=== PATIENT | male | born 1965 | race Caucasian/White ===

== ENCOUNTER 2019-02-08 07:51 | Inpatient (IN) ==
--- NOTE | 2019-02-08 09:15 | EKG Report ---
Test Performed on : 02/08/2019 08:11:44 AM Test Reason : AMS Blood Pressure : / mmHG Vent. Rate : 072 BPM Atrial Rate : 072 BPM P-R Int : 162 ms QRS Dur : 092 ms QT Int : 422 ms P-R-T Axes : 000 143 179 degrees QTc Int : 462 ms Normal sinus rhythm. Right axis deviation ST & T wave abnormality, consider inferior ischemia ST & T wave abnormality, consider anterolateral ischemia Abnormal ECG No previous ECGs available Unconfirmed Result
[2019-02-08 09:18] LABS: BASO# 0.02 X1000 (0.0-0.2); BASO% 0.2 % (0.0-0.8); EOS# 0.44 X1000 (0.0-0.7); EOS% 3.5 % (0.0-10.0); HEMATOCRIT 34.7 % (42.0-52.0); HEMOGLOBIN 12.1 g/dL (14.0-18.0); IMM GRAN# 0.04 X1000 (0.0-0.04); IMM GRAN% 0.3 % (0.0-0.5); LYMPH# 1.31 X1000 (1.2-3.4); LYMPH% 10.6 % (20.5-51.1); MCHC 34.9 g/dL (33-37); MCV 91.8 FL (81-99); MONO# 1.06 X1000 (0.11-0.59); MONO% 8.5 % (1.7-9.3); MPV 13.4 FL (7.4-10.4); NEUT# 9.53 X1000 (1.4-6.5); NEUT% 76.9 % (42.2-75.2); PLT 182 X1000 (130-400); RBC 3.78 XMIL (4.7-6.1); RDW 12.5 % (11.5-14.5)
--- NOTE | 2019-02-08 09:20 | Diag Imaging Result Doc PS360 ---
EXAM: CHEST-PORTABLE HISTORY: AMS TECHNIQUE: Single view COMPARISON: None. FINDINGS: The lungs are well expanded. The heart is not enlarged. The vessels are not distended. There are no infiltrates. No effusion identified. IMPRESSION: Negative exam. Electronically signed by Edy Delvalle 02/08/2019 9:17 AM
[2019-02-08 09:39] LABS: ALB/GLOB RATIO 1.5; CALCIUM 8.6 mg/dL (8.8-10.2); POTASSIUM 3.5 mmol/L (3.5-5.1); TOTAL BILIRUBIN 0.4 mg/dL (0.20-1.00); TOTAL PROTEIN 6.7 g/dL (6.3-8.3)
--- NOTE | 2019-02-08 09:39 | Diag Imaging Result Doc PS360 ---
EXAM: CT HEAD W/O CONTRAST 02/08/2019 HISTORY: AMS TECHNIQUE: This exam was performed using automated exposure control, adjustment of mA or kV according to patient size, and/or use of iterative reconstruction technique. COMMENT: There is no evidence of mass effect, bleed, or abnormal extra-axial fluid collection. There are patchy lucencies in the subcortical and periventricular white matter bilaterally. There is no evidence of acute bony disease. The visualized paranasal sinuses are clear. IMPRESSION: Chronic microvascular white matter changes. No definite evidence of acute disease. Electronically signed by Thaddeus Turner 02/08/2019 9:37 AM
[2019-02-08 09:44] LABS: INR 1.02; PROTIME 13.6 Seconds (11.0-16.0)
[2019-02-08 09:45] LABS: PTT 27.8 Seconds (22.3-41.8)
[2019-02-08] MEDS ORDERED: NS 1,000 ML IV ONE (09:59)
[2019-02-08 10:08] LABS: CK INDEX 4.1 (0.0-2.5); CK-MB 8.71 ng/mL (0.0-5.0)
[2019-02-08 10:13] LABS: URINE SOURCE CATH
[2019-02-08 10:22] LABS: BILIRUBIN URINE NEGATIVE (NEGATIVE); BLOOD URINE NEGATIVE (NEGATIVE); COLOR STRAW; GLUCOSE URINE NEGATIVE (NEGATIVE); KETONE URINE NEGATIVE (NEGATIVE); LEUKOCYTES URINE NEGATIVE (NEGATIVE); NITRITE URINE NEGATIVE (NEGATIVE); PROTEIN URINE NEGATIVE (NEGATIVE); SP GRAVITY URINE 1.009; TURBIDITY URINE CLEAR (CLEAR); UROBILINOGEN URINE NORMAL (NORMAL)
[2019-02-08 10:23] LABS: UR EPITHELIAL CELLS <10 /HPF (<10); URINE BACTERIA NEGATIVE /HPF; URINE RBC <10 /HPF (<10); URINE WBC <10 /HPF (<10)
[2019-02-08 11:22] LABS: UR AMPHETAMINES QUAL NONE DETECTED (NONE DETECT); UR BARBITUATES QUAL NONE DETECTED (NONE DETECT); UR BENZODIAZEPIN QUAL NONE DETECTED (NONE DETECT); UR CANNABINOIDS QUAL NONE DETECTED (NONE DETECT); UR COCAINE QUAL NONE DETECTED (NONE DETECT); UR METHADONE QUAL NONE DETECTED (NONE DETECT); UR OPIATES QUAL NONE DETECTED (NONE DETECT); UR OXYCODONE QUAL NONE DETECTED (NONE DETECT); UR PCP QUAL NONE DETECTED (NONE DETECT)
[2019-02-08 11:23] LABS: UR CREAT RANDOM 60.1 mg/dL (14-26)
[2019-02-08 11:30] LABS: UR PROT RANDOM 4.8 mg/dL
[2019-02-08] MEDS ORDERED: ZOFRAN IV PRN (11:59)
[2019-02-08] MEDS ORDERED: TYLENOL PO PRN (11:59)
[2019-02-08] MEDS: NS 1,000 ML IV SCH ×2 (12:35→23:21)
--- NOTE | 2019-02-08 12:48 | Diag Imaging Result Doc PS360 ---
EXAM: US RENAL 2 (RETROPER) COMPLETE HISTORY: acute kidney injury TECHNIQUE: Renal ultrasound COMPARISON: None. FINDINGS: The right kidney measures 10.8 x 6.4 x 5.7 cm. The left kidney measures 10.2 x 6.6 x 6.0 cm. Normal cortical thickness to each kidney. Mild increased renal echotexture. No stones or hydronephrosis. No renal mass. The urinary bladder is distended and appears normal. The prostate measures 4.6 cm in maximum diameter. IMPRESSION: Increased renal echotexture which can be seen with medical renal disease. Electronically signed by Edy Delvalle 02/08/2019 12:45 PM
--- NOTE | 2019-02-08 14:43 | PROVIDER DOCUMENTATION ---
This chart was entered by Darya Hanley Scribe, acting as scribe for Alexandrea Beyer MD. HPI-Neurological Disorder - General Chief Complaint: Altered Mental Status Stated Complaint: AMS X3 WEEKS Time Seen by Provider: 02/08/19 08:22 Source: family, EMS Allergies/Adverse Reactions: Patient Allergies Allergy/AdvReac Type Severity Reaction Status Date / Time chlorpromazine Allergy ANAPHYLAXIS Verified 03/15/18 13:44 [From Thorazine] Home Medications: Home Medication List Medication Instructions Recorded Confirmed Last Taken Type [place] Carbonate C.r. [Eskalith 450 mg PO BID 03/15/18 02/08/19 03/15/18 History Cr] Losartan/Hydrochlorothiazide 1 ea PO DAILY 02/08/19 02/08/19 Unknown History [Hyzaar 100-25 Tablet] - History of Present Illness-Neuro Nature of Presenting Problem: Patient is a 53 year old male who presents to the ED via EMS with altered mental status. Family states patient is confused. Family reports altered mental status has been present for 2 weeks. EMS states patient reported he has not been taking his [place]. Severity: reports: mild Onset/Duration: reports: other (2 weeks) Timing: reports: still present Context: reports: other (AMS) Character of Altered Mental Status: reports: confused Any recent trauma/injury?: reports: none Associated Symptoms: reports: denies symptoms Similar Symptoms Previously?: Yes Recently seen or treated by another doctor?: Yes Review of Systems - Adult - REVIEW OF SYSTEMS - ADULT ROS:: ROS per family Constitutional: reports: no symptoms reported Eyes: reports: no symptoms reported Ears, Nose, Mouth & Throat: reports: no symptoms reported Cardiovascular: reports: no symptoms reported Respiratory: reports: no symptoms reported Gastrointestinal: reports: no symptoms reported Genitourinary: reports: no symptoms reported Musculoskeletal: reports: no symptoms reported Integumentary: reports: no symptoms reported Neurological: reports: see HPI, other (AMS - confused). denies: dizziness/vertigo, headache/migraines Psychiatric: reports: no symptoms reported Endocrine: reports: no symptoms reported Hematologic/Lymphatic: reports: no symptoms reported Allergic/Immunologic: reports: no symptoms reported All Other Systems: Reviewed and Negative Past History - Adult - PAST MEDICAL HISTORY-ADULT Review of Records: reports: Old Records Reviewed, Nursing Assessment Review, Medications Reviewed, Social history reviewed & non-contributory. Major Childhood Illnesses: reports: denies history Cardiovascular: reports: HTN Respiratory: reports: denies history Gastrointestinal: reports: denies history Obstetrical/Gynecological: reports: denies history Genitourinary: reports: denies history Musculoskeletal: reports: denies history Neurological: reports: denies history Psychiatric: reports: depression Endocrine/Immune: reports: denies history Other Conditions: reports: denies history - PRIOR SURGERIES/PROCEDURES Surgical/Procedure History: reports: orthopedic (extremity) - IMMUNIZATION STATUS Childhood Immunizations: See Nurse Assessment Flu Vaccine: See Nurse Assessment - FAMILY HISTORY Family History: reviewed, not pertinent - SOCIAL HISTORY Smoking: denies Substance Use: alcohol Physical Exam- Neurological - Physical Exam-Neuro Initial Vital Signs Reviewed: Yes General Appearance: no apparent distress, slow to respond, other (flat affect). negative: obtunded Eye Exam: bilateral eye: normal inspection HENMT: normocephalic/atraumatic, moist mucous membranes. negative: angioedema Head Injury: no evidence of injury. negative: active bleeding, lacerations Respiratory: chest non-tender, lungs clear, normal breath sounds. negative: rales, rhonchi, stridor Cardiovascular: normal peripheral pulses, regular rate, rhythm. negative: tachycardia Abdominal Exam: normal bowel sounds, non tender, soft. negative: distended, rigid Extremity: normal inspection. negative: deformity, erythema restaurant greeter Exam: normal hearing, normal speech. negative: abnormal speech, facial droop Motor/Sensory: no motor deficit, no pronator drift. negative: sensory deficit Neurologic: other (shaking/tremors at times) Integumentary: normal color, normal turgor, warm/dry. negative: diaphoresis, ecchymosis, rash Psych/Mental Status: other (flat affect and slow to respond). negative: anxious, tearful - [place] Coma Scale Best Eye Response: (4) open spontaneously Best Verbal Response: (4) confused conversation Best Motor Response: (6) obeys commands Progress - PLAN OF CARE/RESULTS Result Diagrams: 02/08/19 08:18 02/08/19 08:18 - EKG 1 Time of EKG reading by physician:: 08:11 EKG Read and Signed by:: Alexandrea Beyer EKG Interpretation (*Must complete 3 of following elements*): Abnormal (ST & T wave abnormality, consider anterolateral ischemia) Rate: 72 Rhythm: normal sinus rhythm [place]: right HI Interval: normal Comments: ST & T wave abnormality, consider inferior ischemia; - XRAY 1 XRAY Study: Chest Impression: See EMR Report ( EXAM: CHEST-PORTABLE HISTORY: AMS TECHNIQUE: Single view COMPARISON: None. FINDINGS: The lungs are well expanded. The heart is not enlarged. The vessels are not distended. There are no infiltrates. No effusion identified. IMPRESSION: Negative exam. Electronically signed by Edy Delvalle 02/08/2019 9:17 AM 02/08/19916 Interpreting Physician: Edy Delvalle MD Dictated Date/Time: 02/08/19916 cc: Alexandrea Beyer MD; Adeel Ricardo MD) - CT/MRI 1 CT Study: Head Impression: See EMR Report (EXAM: CT HEAD W/O CONTRAST 02/08/2019 HISTORY: AMS TECHNIQUE: This exam was performed using automated exposure control, adjustment of mA or kV according to patient size, and/or use of iterative reconstruction technique. COMMENT: There is no evidence of mass effect, bleed, or abnormal extra-axial fluid collection. There are patchy lucencies in the subcortical and periventricular white matter bilaterally. There is no evidence of acute bony disease. The visualized paranasal sinuses are clear. IMPRESSION: Chronic microvascular white matter changes. No definite evidence of acute disease. Electronically signed by Thaddeus Turner 02/08/2019 9:37 AM 02/08/19936 Interpreting Physician: Thaddeus Turner MD Dictated Date/Time: 02/08/19935 cc: Alexandrea Beyer MD; Adeel Ricardo MD) - CONSULTS/PCP/HOSPITALIST Notification #1 *Consult/PCP/Hospitalist*: Dr. Ashton Time Discussed: 10:11 Reason/Comments: Dr. Beyer consulted with Dr. Ashton about patient Consult Disposition: Will see in ED, Admit Departure - Departure Date of Disposition Decision: 02/08/19 Time of Disposition Decision: 10:12 DIAGNOSIS: [place] toxicity Disposition: ADMITTED INPATIENT 09 Certified Medical Emergency: Emergent Condition: Stable - Critical Care Note This patient required my direct & personal management of CC.: No Attestation - Physician/ PAULETTE Attestation Patient care was provided by Advanced Practice Provider:: No The physician spent face to face time with patient:: Yes Advanced Practice Provider documentation review:: Supervising physician onsite and consulted in the evaluation and care of this patient. The physician did have a face to face encounter with the patient. This chart was documented by the indicated scribe, (Darya Hanley Scribe) and accurately reflects the services I performed and decisions made by me, Alexandrea Beyer MD, as attested by the provider's signature.
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
[2019-02-09 05:31] LABS: HEMATOCRIT 30.3 % (42.0-52.0); HEMOGLOBIN 10.2 g/dL (14.0-18.0); MCH 31.8 PG (27-31); MCHC 33.7 g/dL (33-37); MCV 94.4 FL (81-99); MPV 12.9 FL (7.4-10.4); RBC 3.21 XMIL (4.7-6.1); RDW 12.8 % (11.5-14.5); WBC 9.36 X1000 (4.8-10.8)
[2019-02-09 05:32] LABS: ALBUMIN 3.4 g/dL (3.5-5.0); CALCIUM 8.9 mg/dL (8.8-10.2); CREATININE 1.6 mg/dL (0.7-1.2); PHOSPHORUS 2.2 mg/dL (2.7-4.5); POTASSIUM 3.4 mmol/L (3.5-5.1)
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
[2019-02-09] MEDS: NS 1,000 ML IV SCH ×3 (08:15→23:18)
[2019-02-09] MEDS: LOVENOX SUBQ SCH (10:21)
[2019-02-09] MEDS ORDERED: KLOR-CON PO ONE (10:39)
--- NOTE | 2019-02-09 14:38 | PROGRESS NOTE ---
DATE: 02/09/2019 SUBJECTIVE: The patient is awake and feeling better today. His speech is better, and the tremors have improved. OBJECTIVE: Vital Signs: Temperature 97.4 degrees, blood pressure 129/62, heart rate 69, respirations 16, and O2 saturation 100% on room air. General: This is an elderly male lying in bed in no acute distress. Heart: S1, S2 normal. Regular rate and rhythm. Lungs: Clear to auscultation bilaterally. Abdomen: Positive bowel sounds. Soft, nontender, and nondistended. Extremities: No edema. No cyanosis. No calf tenderness. Neurologic: The patient is alert and oriented x4. LABORATORY: Sodium 141, potassium 3.4, chloride 111, CO2 21, BUN 23, creatinine 1.6, and glucose 165. [place] level 2.1. ASSESSMENT AND PLAN: 1. Toxic metabolic encephalopathy. Slowly improving. The patient's mental status is better today. We will continue to monitor closely. 2. [place] toxicity. Slowly improving. 3. Acute kidney injury. Slightly improved today. Continue with IV fluids. Nephrology is following. 4. Bipolar disorder. Aware. The lithium is currently on hold. 5. Hypokalemia. Will replace the potassium. 6. Deep vein thrombosis prophylaxis. Continue on Lovenox. 7. We will consult physical therapy. cc: Debora Kaba MD MTDD
[2019-02-10 05:48] LABS: AGAP 11; ALBUMIN 3.7 g/dL (3.5-5.0); BUN 14 mg/dL (8-22); CALCIUM 9.3 mg/dL (8.8-10.2); CHLORIDE 111 mmol/L (98-107); COSMO 286; CREATININE 1.2 mg/dL (0.7-1.2); ESTIMATED GFR > 60; GLUCOSE 174 mg/dL (70-104); PHOSPHORUS 2.2 mg/dL (2.7-4.5); POTASSIUM 3.6 mmol/L (3.5-5.1); SODIUM 141 mmol/L (136-145); TCO2 19 mmol/L (25-35)
[2019-02-10 06:02] LABS: HEMATOCRIT 30.6 % (42.0-52.0); HEMOGLOBIN 10.4 g/dL (14.0-18.0); MCH 31.8 PG (27-31); MCV 93.6 FL (81-99); MPV 13.4 FL (7.4-10.4); RBC 3.27 XMIL (4.7-6.1); RDW 12.2 % (11.5-14.5); WBC 11.61 X1000 (4.8-10.8)
[2019-02-10] MEDS: NS 1,000 ML IV SCH ×2 (07:31→15:37)
[2019-02-10] MEDS: LOVENOX SUBQ SCH (09:06)
--- NOTE | 2019-02-10 13:54 | NEPHROLOGY PROGRESS NOTE ---
DATE: 02/10/2019 SUBJECTIVE: He is spontaneously awake, the staff states that he got out of bed overnight and had a fall. No injury. Urinated on the floor. Today he is disoriented as to place, stating that he is at home but otherwise he is able to relate his history. He is able to tell me where he works and what sort of work he does. He is able to relate the problems he was having and when the last time was he went to work. His speech is still weak and tremulous but understandable. OBJECTIVE: Vital Signs: Blood pressure 139/73, heart rate 80, respirations 14, afebrile. General: No acute distress. Skin: Warm and dry. Neck: Neck veins are not distended. Heart: Regular with S4. Lungs: Equal. No crackles. Abdomen: Soft, nontender. Normal bowel sounds. Extremities: No edema clubbing or cyanosis. IMPRESSION: 1. Intravascular volume depletion with acute kidney injury. Resolved. 2. [place] intoxication. [place] level 1.6 this morning. Progressive improvement clinically as well as in his lithium levels. 3. I have nothing further to add so I will sign off but if I can be of further assistance, please do not hesitate to call. cc: Medardo Stevenson MD
[2019-02-10] MEDS ORDERED: SODIUM PHOSPHATE 20 MMOL in NS 250 ML IV ONE (17:23)
--- NOTE | 2019-02-10 17:45 | PROGRESS NOTE ---
DATE: 02/10/2019 SUBJECTIVE: The patient is resting comfortably in bed. He is more awake and alert today. His parents are present at the bedside. OBJECTIVE: Vital Signs: Temperature 97.9 degrees, blood pressure 130/69, heart rate 67, respirations 16, O2 saturation is 100% on room air. General: This is an elderly male sitting in a chair in no acute distress. Heart: S1, S2 normal. Regular rate and rhythm. Lungs: Clear to auscultation bilaterally. Abdomen: Positive bowel sounds. Soft, nontender, nondistended. Extremities: No edema. No cyanosis. Neurologic: The patient is alert and oriented x3. LABORATORY DATA: White blood cell count 11, platelets 173,000. Sodium 141, potassium 3.6, chloride 111, CO2 is 19, BUN 14, creatinine 1.2, glucose 174, phosphorus 2.2. ASSESSMENT AND PLAN: 1. Toxic metabolic encephalopathy. Resolving. The patient's renal function is back to normal and his mental status is improved. Continue to monitor. 2. [place] toxicity. Resolving. He will need to follow up with his pst specialist to find a different medication. 3. Acute kidney injury. Resolved. 4. Bipolar disorder. Aware. 5. Hypophosphatemia. Replace phosphorus. 6. Deep vein thrombosis prophylaxis. Continue on Lovenox. 7. Continue with physical therapy. cc: Debora Kaba MD [facility]
[2019-02-11] MEDS: NS 1,000 ML IV SCH (05:32)
[2019-02-11 06:19] LABS: AGAP 11; ALBUMIN 3.7 g/dL (3.5-5.0); BUN 13 mg/dL (8-22); CALCIUM 8.8 mg/dL (8.8-10.2); CHLORIDE 112 mmol/L (98-107); COSMO 288; CREATININE 1.1 mg/dL (0.7-1.2); ESTIMATED GFR > 60; GLUCOSE 118 mg/dL (70-104); PHOSPHORUS 2.8 mg/dL (2.7-4.5); POTASSIUM 3.7 mmol/L (3.5-5.1); SODIUM 144 mmol/L (136-145); TCO2 21 mmol/L (25-35)
[2019-02-11] MEDS: LOVENOX SUBQ SCH (08:44)
--- NOTE | 2019-02-11 17:27 | PROGRESS NOTE ---
DATE: 02/11/2019 SUBJECTIVE: The patient is still a little confused. He has difficulty at times feeding himself and is unsteady on his feet. OBJECTIVE: Vital Signs: Temperature 97 degrees, blood pressure 133/76, heart rate 71, respirations 16, and O2 saturation is 100% on room air. Intake 720, output 1.9 L. General: This is a chronically ill-appearing elderly male lying in bed in no acute distress. Heart: S1, S2 normal. Regular rate and rhythm. Lungs: Clear to auscultation bilaterally. Abdomen: Positive bowel sounds. Soft, nontender, nondistended. Extremities: No edema. No cyanosis. Neurologic: The patient is alert and oriented x3. LABORATORIES: Sodium 144, potassium 3.7, BUN 13, creatinine 1.1, chloride 112, CO2 of 21, glucose 118. ASSESSMENT AND PLAN: 1. [place] toxicity. The patient's laboratory studies are normal. However, the patient's mental status and ability to walk are still impaired. The patient would likely benefit from a brief stay at an inpatient rehab facility. 2. Acute kidney injury. Resolved. 3. Bipolar disorder. Aware. 4. Deep vein thrombosis prophylaxis. Continue on Lovenox. DISPOSITION: We will consult with [facility] for inpatient rehab placement. Continue with PT. cc: Debora Kaba MD MTDD
[2019-02-12] MEDS: LOVENOX SUBQ SCH (08:38)
--- NOTE | 2019-02-12 18:05 | PROGRESS NOTE ---
DATE: 02/12/2019 SUBJECTIVE: The patient is sitting up in bed eating lunch. He admits that he purposefully took extra lithium doses for 2 days straight, both in the morning and in the evening. OBJECTIVE: Vital Signs: Temperature 98 degrees, blood pressure 130/79, heart rate 67 respirations 16, O2 saturation 100% on room air. General: This is a chronically ill-appearing elderly male sitting in bed in no acute distress. Heart: S1, S2 normal. Regular rate and rhythm. Lungs: Equal air entry bilaterally. No wheezing. No rales. Abdomen: Positive bowel sounds. Soft, nontender, nondistended. Extremities: No edema. No cyanosis. Neurologic: The patient is alert and oriented x3. LABORATORY DATA: None. ASSESSMENT AND PLAN: 1. [place] toxicity. Resolved. The patient admits that for 2 days straight he took an extra morning and evening dose of lithium. He states he just wanted to see what it would do to him. The patient was advised strongly against taking any extra medications. 2. Acute kidney injury. Resolved. 3. Bipolar disorder. Aware. The patient will need to follow up with Dr. Adeel Ricardo to discuss the initiation of an alternative agent for his disorder. 4. Deep vein thrombosis prophylaxis. Continue on Lovenox. 5. Disposition. We will continue with physical therapy. The patient should be stable for discharge home tomorrow. cc: Debora Kaba MD MTDD
[2019-02-13 05:46] LABS: AGAP 9; BUN 13 mg/dL (8-22); CALCIUM 8.8 mg/dL (8.8-10.2); CHLORIDE 109 mmol/L (98-107); COSMO 280; CREATININE 1.1 mg/dL (0.7-1.2); ESTIMATED GFR > 60; GLUCOSE 110 mg/dL (70-104); SODIUM 140 mmol/L (136-145); TCO2 22 mmol/L (25-35)
[2019-02-13] MEDS: LOVENOX SUBQ SCH (11:12)
[2019-02-13 13:08] VITALS: BP 126/67
--- NOTE | 2019-02-14 12:53 | DISCHARGE SUMMARY ---
ADMISSION DATE: 02/08/2019 DISCHARGE DATE: 02/13/2019 FINAL DISCHARGE DIAGNOSES: 1. [place] toxicity secondary to intentional overdose. 2. Acute kidney injury. 3. Toxic metabolic encephalopathy. 4. Hypertension. 5. Bipolar disorder. CONSULTATIONS: Nephrology consultation with Dr. Stevenson. IMAGIN. Portable chest x-ray performed on 02/08/2019 that revealed no acute disease. 2. Head CT performed on 02/08/2019 that revealed chronic microvascular white matter changes. 3. Renal ultrasound performed on 02/08/2019 that revealed increased renal echotexture. HOSPITAL COURSE: Mr. Morataya is a 53-year-old female with a history of hypertension and bipolar disorder who presented to the ER with acute mental status change as well as diffuse tremors. The patient has been on lithium therapy for 30 years. On admission, he was noted to have a lithium level of 2.8. Also, he was noted to be in acute renal failure with a BUN of 35, and a creatinine of 2. In light of these findings, the patient was admitted to the hospitalist service. Aggressive IV fluid hydration was started and Nephrology was consulted. Over the course of the hospitalization with IV fluid resuscitation, the patient's renal function improved and returned to normal. Also, the lithium level normalized. As the lithium level decreased, the patient's mental status returned to his baseline level of function. After further questioning, the patient admitted to taking double the dose of his lithium for 2 days straight. He stated that he did it just to see what it would do. The patient was seen by physical therapy and occupational therapy and did well with ambulation. The patient continued to improve clinically and was ultimately cleared for discharge home on 02/13/2019. At this time, we will leave the patient off of lithium therapy until he follows up with his primary care physician on 02/14/2019. DISCHARGE MEDICATIONS: Hyzaar 100/25 one tab oral daily. DISCHARGE DIET: Heart healthy low-sodium diet. ACTIVITY: As tolerated. FOLLOWUP INSTRUCTIONS: The patient is scheduled to follow up with Dr. Adeel Ricardo on 02/14/2019 at 12:20 p.m. cc: MD Debora Jackson MD
== END 2019-02-13 15:09 | disposition home or self-care (01) | DRG 917 ==
LOC: ED 07:51 → EDIPHOLD 07:52 → 1N 14:36
PROVIDERS: ATTEND Internal Medicine